=== PATIENT | male | born 1975 | race Asian ===

== ENCOUNTER 2022-09-23 22:35 | Emergency (ER) | payer BC ==
[~2022-09-23] VITALS: Ht 152.4 cm; Wt 68.0 kg
[2022-09-23] MEDS ORDERED: LIDOCAINE 5% TRANSDERMAL PATCH TD ONE (23:15)
[2022-09-23] MEDS ORDERED: CYCLOBENZAPRINE HCL 10 MG TABLET PO ONE (23:15)
[2022-09-23] MEDS ORDERED: KETOROLAC TROMETHAMINE 30 MG/ML VIAL IM ONE (23:15)
[2022-09-24 00:08] VITALS: BP 141/89
[2022-09-24] MEDS ORDERED: CYCL-448 PO (00:36)
== END 2022-09-24 01:40 | disposition home or self-care (01) ==
LOC: EMS 22:37
DX: T14.8XXA Other injury of unspecified body region, initial encounter (principal); I10 Essential (primary) hypertension; F17.210 Nicotine dependence, cigarettes, uncomplicated; F12.90 Cannabis use, unspecified, uncomplicated; X58.XXXA Exposure to other specified factors, initial encounter; Y93.89 Activity, other specified; Y92.89 Other specified places as the place of occurrence of the external cause; Y99.8 Other external cause status
CPT/HCPCS: 99283; 96372; 82948; J1885